=== PATIENT | female | born 1985 | race Caucasian/White ===

== ENCOUNTER 2025-05-19 13:06 | Emergency (ER) | payer OTHER, SELFPAY ==
[2025-05-19 13:16] VITALS: BP 94/53; PULSE 91; RESP 18; TEMP 36.9; O2SAT 99; BMI 23.0
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
[2025-05-19 13:42] VITALS: BP 126/49; PULSE 77; RESP 18; O2SAT 98
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
[2025-05-19 13:48] VITALS: BP 106/64; PULSE 79; RESP 16; O2SAT 99
[2025-05-19 13:49] LABS: Cannabinoid Screen Urine Not Detected (Not Detect)
--- OUTSIDE RECORDS SUMMARY | 2025-05-19 13:57 | XMS_ITS | Clinical Summary ---
Author Organization [facility] Address [facility] [place] [address] Care Team Providers Care Ditch Cleaner Name Role Phone ViolaZuly ulloa TIFFANI Primary Care Provider [phone] Allergies Active Allergy Reactions Criticality Noted Date Comments Duloxetine 03/16/2017 out of body experience Ketorolac Tromethamine 02/04/2017 Patient states that she does not remember the reaction. Tramadol 02/04/2017 Patient states that she does not remember the reaction. Hydrocodone-Acetaminophen 02/04/2017 Patient states that she does not remember the reaction Medications ibuprofen (ADVIL;MOTRIN) 200 mg Tablet Take 3 tablets by mouth every 8 hours as needed for Pain. 30 tablet 5 03/16/2017 Active albuterol (PROVENTIL HFA;VENTOLIN HFA;PROAIR) 90 mcg/actuation HFA Aerosol Inhaler Inhale 2 puffs into the lungs every 4 hours as needed for Wheezing. Use with spacer 1 Inhaler 03/16/2017 Active gabapentin (NEURONTIN) 300 mg Capsule Take 1 capsule by mouth 3 times daily as needed. 30 capsule 11 04/08/2017 Active indomethacin (INDOCIN) 25 mg Capsule Take 1 capsule by mouth 3 times daily as needed. 30 capsule 11 04/08/2017 Active Active Problems Problem Noted Date Diagnosed Date (normal spontaneous vaginal delivery) 03/16 Overview (03/16/2017): Had one daughter delivered normally. Asthma 03/16/2017 Overview (03/16/2017): Exercise induced, worse in childhood. He uses inhalers now as needed Fibromyalgia 03/16/2017 Overview (03/16/2017): Pain in various parts of the body. Was on Lyrica and duloxetine. Got better with exercise Carpal tunnel syndrome on right 03/16/2017 Overview (03/16/2017): Had surgery on the right H/O tubal ligation 03/16/2017 Overview (03/16/2017): Says she does not want more children. Uterus and ovaries retained Radiculopathy of cervical region 03/16/2017 Overview (03/16/2017): Details unclear. Says she was diagnosed with cervical spinal stenosis. Radiculopathy of lumbar region 03/16/2017 Overview (03/16/2017): L5-S1 disc herniation on MRI. Social History Tobacco Use Types Packs/Day Years Used Date Smoking Tobacco: Former Cigarettes Q uit: 02/04/2009 Smokeless Tobacco: Never Alcohol Use Standard Drinks/Week Comments Yes 0 (1 standard drink = 0.6 oz pur e alcohol) occasional Comments Unknown Sex and Gender Information Value Date Recorded Sex Assigned at Not on file Legal Sex Female 6:26 AM EST Gender Identity Not on file Sexual Orientation Not on file Last Filed Vital Signs Vital Sign Reading Time Taken Comments Blood Pressure 94/41 04/08/2017 7:53 AM EDT Pulse 64 04/08/2017 7:53 AM EDT Temperature - - Respiratory Rate - - Oxygen Saturation - - Inhaled Oxygen Concentration - - Weight 71.7 kg (158 lb) 04/08/2017 7:53 AM EDT Height 167.6 cm (5' 6 ) 04/08/2017 7:53 AM EDT r eported Body Mass Index 25.5 04/08/2017 7:53 AM EDT Plan of Treatment Health Maintenance Due Date Last Done Comments HIV screen 2004 Hepatitis C Screening 2004 Hepatitis B vaccine (0-59 yrs) and Risk (1) 2005 Tetanus/Diphtheria/Pertussis Vaccines (1 - Tdap) 08/21 HPV test 2016 PAP Smear 2016 Covid-19 Vaccine ( - season) 2024 Influenza (Flu) vaccine (1 o f 1 - Influenza standard series) 05/28/2025 Care Teams Ditch Cleaner Relationship Specialty Start Date End Date Zuly Rod APRN PCP - General 11/23/12
--- OUTSIDE RECORDS SUMMARY | 2025-05-19 13:57 | XMS_ITS | Clinical Summary ---
Author Organization [facility] Address [address] [place] [address] Care Team Providers Care Microsoft Access Developer Name Role Phone Zuly Rod Primary Care Provider [phone] Social History Tobacco Use Types Packs/Day Years Used Date Smoking Tobacco: Never Assessed Interpersonal Safety Answer Date Record ed Physically Hurt Never 04/28/2020 Verbally Threaten Not on file 04/28/2020 Comments Unknown Sex and Gender Information Value Date Recorded Sex Assigned at Not on file Legal Sex Female 18:39 EST Gender Identity Not on file Sexual Orientation Not on file Plan of Treatment Health Maintenance Due Date Last Done Comments Hepatitis C Screen 1986 Hepatitis B Vaccine (1 of 3 - 19+ 3-dose series) 08/21 COVID-19 Vaccine ( season) 2024 Care Teams Microsoft Access Developer Relationship Specialty Start Date End Date Zuly Rod ARNP [address] [place] [address] PCP - General 08/07/11
--- OUTSIDE RECORDS SUMMARY | 2025-05-19 13:57 | XMS_ITS | Patient Health Record ---
Author Organization [facility] [address] Location Address [address] [place] [id number] Care Team Providers Care Insurance Customer Service Specialist Name Role Phone Salbador Page Primary Care Provider Aaron Gordon NP, Vika Unavailable [phone] Allergies Allergen (clinical drug ingredient) Drug/Non Drug Allergy documented on EMR Reaction Allergy Type Onset Date Status ketorolac toradol (uncoded) Unknown Allergy Ac tive Streptococcus pneumoniae type 1 capsular polysaccharide antigen / Streptococcus pneumoniae type 10A capsular polysaccharide antigen / Streptococcus pneumoniae type 11A capsular polysaccharide antigen / Streptococcus pneumoniae type 12F capsular polysaccharide antigen / Streptococcus pneumoniae type 14 capsular polysaccharide antigen / Streptococcus pneumoniae type 15B capsular polysaccharide antigen / Streptococcus pneumoniae type 17F capsular polysaccharide antigen / Streptococcus pneumoniae type 18C capsular polysaccharide antigen / Streptococcus pneumoniae type 19A capsular polysaccharide antigen / Streptococcus pneumoniae type 19F capsular polysaccharide antigen / Streptococcus pneumoniae type 2 capsular polysaccharide antigen / Streptococcus pneumoniae type 20 capsular polysaccharide antigen / Streptococcus pneumoniae type 22F capsular polysaccharide antigen / Streptococcus pneumoniae type 23F capsular polysaccharide antigen / Streptococcus pneumoniae type 3 capsular polysaccharide antigen / Streptococcus pneumoniae type 33F capsular polysaccharide antigen / Streptococcus pneumoniae type 4 capsular polysaccharide antigen / Streptococcus pneumoniae type 5 capsular polysaccharide antigen / Streptococcus pneumoniae type 6B capsular polysaccharide antigen / Streptococcus pneumoniae type 7F capsular polysaccharide antigen / Streptococcus pneumoniae type 8 capsular polysaccharide antigen / Streptococcus pneumoniae type 9N capsular polysaccharide antigen / Streptococcus pneumoniae type 9V capsular polysaccharide antigen Pneumovax 23 Unknown Drug Allergy Activ e Vicodin Unknown Drug Allergy Active azithromycin Azithromycin Unknown Drug Allergy A ctive bupropion Bupropion Unknown Drug Allergy Active duloxetine Duloxetine Unknown Drug Allergy Activ e fluoxetine Fluoxetine Unknown Drug Allergy Activ e tramadol Tramadol Unknown Drug Allergy Active Reason For Referral No Information Medications Medication SIG (Take, Route, Frequency, Duration) Notes Start Date End Date Status Cyclobenzaprine HCl 5 MG TAKE 1 TABLET O RALLY AT BEDTIME NEEDED FOR MUSCLE SPASM Oral; Duration: 30 Days Not-Taking carBAMazepine Hayden-Prosper carreon Social History Sex Assigned At : Social History Observation Description Sex Assigned At Female Section Notes: working as a concrete form setter and finisher/waitressing no smoking or drugs social ETOH one daughter Problems Problem Type SNOMED Code ICD Code Onset Dates Problem Status W/U Status Risk Notes Problem Displacement of lumbar intervertebral disc without myelopathy (86165677) Other intervertebral disc displacement, lumbar region (M51.26) Active confirmed Problem Low back pain, unspecified (M54.50) Active confirmed Vital Signs Heart Rate 67 /min 11/27/2024 Respiratory Rate 16 /min 11/27/2024 Blood pressure diastolic 72 mm Hg 11/27/2024 Blood pressure systolic 120 mm Hg 11/27/2024 Encounters Encounter Location Date Provider Diagnosis [facility] Location [address] [place] [id number] 11/27/2024 Vika Gordon NP Low back pain, unspecified M54.50 and Other intervertebral disc displacement, lumbar region M51.26 Assessments Encounter Date Diagnosis (ICD Code) Assessment Notes Treatment Notes Treatment Clinical Notes Section Notes 11/27/2024 Other intervertebral disc displacement, lumbar region (ICD-10 - M51.26) 11/27/2024 Low back pain, unspecified (ICD-10 - M54.50) Here today for low back pain and LLE numbness/tingling/ weakness. She has had MRI L-Spine and EMG done on the leg already without significant findings aside from L5-S1 mild disc bulge with mild bilateral facet hypertrophy. results reviewed with her. She has been recommended to try PT specifically for SI joint dysfunction which she will start after she completes PT for her shoulder. She has already tried conservative treatment outlined above. Not interested in medications at this time and supportive care discussed. She may consider a second opinion with Ortho or have updated testing over time. General back health habits were discussed with the patient at length. They included shoe/sneaker wear, proper lifting and moving exercises. They also included proper strengthening exercise including para-spinal and abdominal muscle conditioning. We also discussed benefits of weight loss on back pain. All questions were answered. 11/27/2024 Other The natural history of the diseases was fully discussed with the patient. We also discussed side effects of medications including effect on driving and operating heavy machinery. We also discussed the impact of environmental and stress factor in neurological disease and literature given. All questions were answered. Jud Ley generated this medical record electronically to insure patient-safety and prompt feedback to the referring doctor. Kindly excuse any grammatical or typographical errors. Plan Of Treatment No Information Insurance Providers Payer Name Payer Address Payer Phone Subscriber Number Group Number Insured Name Patient Relationship to Insured Coverage Start Date Coverage End Date [facility] [address] [address] [place] [phone] [id number] Myriam Leija Self - patient is the insured Medical (General) History Medical History History ICD Code Trigeminal neuralgia hx of shingles Herniated L3 Surgical History Surgery Date(Month/Year) tubal ligation right median nerve release
[2025-05-19 14:30] VITALS: BP 106/64; PULSE 79; RESP 16; TEMP -17.7; TEMP 0; O2SAT 99
== END 2025-05-19 14:30 | disposition home or self-care (01) ==
PROVIDERS: Emergency Provider Emergency Medicine
DX: R11.10 Vomiting, unspecified (principal); R53.1 Weakness; R19.7 Diarrhea, unspecified; Z51.81 Encounter for therapeutic drug level monitoring; Z79.899 Other long term (current) drug therapy
CPT/HCPCS: 80307; 99284

== ENCOUNTER 2025-08-31 10:31 | Emergency (ER) | payer MEDICAID, SELFPAY ==
--- NOTE | ~2025-08-31 | XR_ITS ---
EXAMINATION: XR LUMBOSACRAL SPINE CLINICAL INFORMATION: low back pain COMPARISON: None available. TECHNIQUE: Three views of the lumbosacral spine. FINDINGS: There are 5 nonrib-bearing lumbar segments. Vertebral body height and alignment is preserved. Disc spaces are preserved. XR/XR lumbar spine 2-3V IMPRESSION: Unremarkable examination. Electronically signed by: Brady Coppola MD 08/31/2025 01:19 PM EST
[2025-08-31 10:36] VITALS: BP 111/56; PULSE 68; RESP 18; TEMP 36.1; O2SAT 97; BMI 25.8
--- NOTE | 2025-08-31 10:42 | ED_ITS ---
HPI - General Adult General Chief complaint: Back Pain/Injury Stated complaint: back pain Time Seen by Provider: 08/31/25 16:04 Source: patient Mode of arrival: ambulatory Limitations: no limitations History of Present Illness ED Provider: Dr. Cuevas HPI narrative: This is a 40-year-old female presented hospital today for low back pain. The patient stated that this had happened when she was shoveling snow. This has been radiating down her left leg. The pain is excruciating to her. It is worse with movement. No numbness and tingling in the groin area. No bowel incontinence no urinary retention. She does have history of spinal fracture in the past. Related Data Previous Rx's ?Medication ?Instructions ?Recorded lidocaine 5 % topical patch 1 patch topical DAILY #15 ea 08/31/25 oxycodone 5 mg tablet 5 mg PO Q6H PRN pain 4 days #14 08/31/25 tabs prednisone 20 mg tablet 20 mg PO DAILY 7 days #7 tab s 08/31/25 Allergies Allergy/AdvReac Type Severity Reaction Status Date / Time acetaminophen (From Vicodin) Allergy Vomiting Verified 08/31/25 10:38 hydrocodone (From Vicodin) Allergy Vomiting Verified 08/31/25 10:38 influenza virus vaccine tvs Allergy Unknown Verified 08/31/25 10:38 (65 yr and up) (From Fluad (65yr+)(PF)) ketorolac (From Toradol) Allergy Unknown Verified 08/31/25 10:38 tramadol Allergy Unknown Verified 08/31/25 10:38 vaccine adjuvant emulsion Allergy Unknown Verified 08/31/25 10:38 [id number] (From Fluad (65yr+)(PF)) Review of Systems Review of Systems: Pertinent review of systems as mentioned in HPI. All other system otherwise negative. [facility] Past Medical History [facility] Narrative: Medical history as mentioned in HPI Social History Social History Alcohol intake: current Alcohol intake frequency: a few times a month Alcohol type: hard liquor Advance Directives: No Advance Directives Information Provided: No Do you have a plan to hurt others: No Plan Patient : No Physical Exam ED Exam Exam: General: Pleasant, no distress, interacting appropriately Head: Normacephalic, atraumatic ENT: oral mucosa moist, neck supple, no tracheal deviation Extremities: Lumbar tenderness on palpation, positive straight leg test on the left side Neurological: Awake and alert, no facial droop noted Skin: Warm and dry Psychiatric: Appropriate mood and thoughts Vital Signs: Vital Signs - 24 hr 08/31/25 10:36 Temperature 97 F Pulse Rate 68 Respiratory Rate 18 Blood Pressure 111/56 L Pulse Oximetry 97 Oxygen Delivery Method Room Air BMI result Body Mass Index 25.8 Course Course Course Narrative: Rapid medical examination performed in triage by Khloe Zamora PA-C: Patient is a 40 year old assigned female at [facility] with [facility] pain. Patient states that she had a previous lumbar spine fracture 20 years ago. Patient states that she was just shoveling snow when she felt her back go out and is now having lower extremity numbness / tingling. Detailed physical exam and review of systems are deferred to the assistant therapy aide. Patient placed back in the waiting room pending room availability. Medications Administered Discontinued Medications Generic Name Dose Route Start Last Admin Trade Name Lonnie PRN Reason Stop Dose Admin Diazepam 5 mg 08/31/25 17:23 08/31/25 17:42 Diazepam 5 Mg Tablet PO 08/31/25 17:24 5 mg ONCE ONE Administration Lidocaine 1 patch 08/31/25 16:13 08/31/25 16:24 Lidocaine 4 % Patch Adh..Patch TRANSDERMA 08/31/25 16:14 1 patch ONCE ONE Administration Protocol Ondansetron HCl 4 mg 08/31/25 16:14 08/31/25 16:24 Ondansetron Odt 4 Mg Tab.Rapdis TRANSLINGU 08/31/25 16:15 4 mg ONCE ONE Administration Oxycodone HCl 5 mg 08/31/25 16:13 08/31/25 16:24 Oxycodone Hcl Immed Release 5 Mg Tablet PO 08/31/25 16:14 5 mg ONCE ONE Administration Prednisone 20 mg 08/31/25 16:14 08/31/25 16:24 Prednisone 20 Mg Tablet PO 08/31/25 16:15 20 mg ONCE ONE Administration Medical Decision Making Medical Decision Making MDM Narrative: 40-year-old female presented hospital today for evaluation of low back pain that radiates to her left lower extremity. Plan to give patient a dose of oxycodone here, lidocaine patch will be provided, we will also give patient a dose of prednisone. Zofran will be given for anticipatory nausea for opioid medication Lumbar x-ray is negative for any signs of fracture. Patient did have some improvement after medication. We will plan to discharge patient home with a course of oxycodone, prednisone, lidocaine patch to take. Instruct her to take NSAIDs scheduled around the clock. I suspect this is lumbar radiculopathy return precautions to return to the ER if there is any signs of red flag symptoms for her back pain. Patient agrees and understands this plan all questions were addressed. Differential Diagnosis Differential Diagnoses: The differential diagnosis associated with the presentation includes Lumbar fracture, lumbar radiculopathy, cauda equina, muscular strain, piriformis syndrome Independent Interpretation I performed an independent interpretation of an: Plain X-Ray Radiology Impression Discussion of test interpretation with radiology: I have reviewed the radiologist's reading. Discharge Plan Discharge Clinical Impression: Acute left lumbar radiculopathy Patient Disposition: Home, Self-Care Instructions: Lumbar Radiculopathy (ED) Additional Instructions: Take tylenol 1000mg every 8 hours and ibuprofen 400mg every 6 hr as needed for pain. Take oxycodone for any severe breakthrough pain as needed. Do NOT drive on oxycodone Prescriptions: New oxycodone 5 mg tablet 5 mg PO Q6H PRN (Reason: pain) 4 Days Qty: 14 0RF Rx Instructions: Partial Fill upon patient request. prednisone 20 mg tablet 20 mg PO DAILY 7 Days Qty: 7 0RF lidocaine 5 % adhesive patch,medicated 1 patch topical DAILY Qty: 15 0RF Rx Instructions: leave on most painful area for up to 12 hrs Referrals: [facility] [place] [Provider Group, Internal Medicine] Print Language: Citizen Of [place]
[2025-08-31] MEDS: oxyCODONE HCl Immed Release 5 MG TABLET PO (16:24)
[2025-08-31] MEDS: Lidocaine 4 % Patch ADH..PATCH 1 PATCH TRANSDERMA (16:24)
[2025-08-31 19:19] VITALS: BP 102/49; PULSE 66; RESP 18; TEMP 36.7; O2SAT 97
[2025-08-31 19:20] VITALS: BP 102/49; PULSE 66; RESP 18; TEMP 36.7; O2SAT 97
--- OUTSIDE RECORDS SUMMARY | 2025-08-31 19:47 | XMS_ITS | Encounter Summary ---
Author Organization [employer] [facility] Address [address] [place] [id number] Care Team Providers Care Printing Agent Name Role Phone Unavailable Primary Care Provider Unavailabl e Reason for Visit * Reason Onset Date Comments CHW - New Patient Assistance 08/31/2025 Encounter Details Date Type Department Care Team (Late st Contact Info) Description 08/31/2025 Telephone [facility] MEDICINE [address] [place] [address] [phone] Alonso Whyte MD [address] [place], [place] [phone] CHW - New Patient Assistance Social History Tobacco Use Types Packs/Day Years Used Date Smoking Tobacco: Never Assessed Comments Unknown Sex and Gender Information Value Date Recorded Sex Assigned at Not on file Legal Sex Female 8:52 AM EST Gender Identity Not on file Sexual Orientation Not on file documented as of this encounter Miscellaneous Notes * Telephone Encounter - Lynne Nickerson - 08/31/2025 8:53 AM EST TC from caller requesting NEW PATIENT visit . DX : Medical Concern: Back pain [facility] Location : [facility] Demographic information updated documented in this encounter Plan of Treatment Upcoming Encounters Date Type Department Care Team (Late st Contact Info) Description 10/03/2025 2:30 PM EST Office Visit [facility] MEDICINE [address] [place] [address] [phone] Franklin Paez NP [address] [place], [place] [phone] documented as of this encounter Visit Diagnoses Not on filedocumented in this encounter
--- OUTSIDE RECORDS SUMMARY | 2025-08-31 19:47 | XMS_ITS | Clinical Summary ---
Author Organization [facility] Address [address] [place] [address] Care Team Providers Care Sales Order Clerk Name Role Phone Zuly Rod Primary Care Provider [phone] Social History Tobacco Use Types Packs/Day Years [...] - 19+ 3-dose series) 08/21 COVID-19 Vaccine (2024- season) 2025 Care Teams Sales Order Clerk Relationship Specialty Start Date End Date Zuly Rod ARNP [address] [place] [address] PCP - General 08/07/11
--- OUTSIDE RECORDS SUMMARY | 2025-08-31 19:47 | XMS_ITS | Clinical Summary ---
Author Organization [employer] Address [address] [place] [address], [place] [address] Care Team Providers Care Correction Officer Reformatory Name Role Phone Unavailable Primary Care Provider Unavailabl e Encounters Date Type Department Care Team Description 08/31/2025 Telephone [facility] MEDICINE [address] [place] [id number] Alonso Whyte MD CHW - New Patient Assistance from Last 3 Months Social History Tobacco Use Types Packs/Day Years Used Date Smoking Tobacco: Never Assessed Comments Unknown Sex and Gender Information Value Date Recorded Sex Assigned at Not on file Legal Sex Female 8:52 AM EST Gender Identity Not on file Sexual Orientation Not on file Plan of Treatment Upcoming Encounters Date Type Department Care Team (Late st Contact Info) Description 10/03/2025 2:30 PM EST Office Visit [facility] MEDICINE [address] [place] [address] [phone] Franklin Paez NP [address] [place], [place] [phone] Health Maintenance Due Date Last Done Comments Depression Screening 1986 HIV Screening 1986 SDOH Screening 1986 Disability Screening 1986 Alcohol/Substance Use Screening 1998 Tobacco Screening 1998 Family Planning (PISQ) 2001 HPV Vaccines (1 - 3-dose series) 2001 Hepatitis C Screening 2004 DTaP/Tdap/Td Vaccines (1 - Tdap) 2005 Hepatitis B Vaccines (1 of 3 - 19+ 3-dose series) 2005 Pap Smear 2007 Cervical Cancer Screening 2016 HPV/Cotest 2016 COVID-19 Vaccine (2024-2 6 season) 2025 Influenza Vaccine (#1) 2025 Zoster Vaccines (1 of 2) 2036 RSV Patients and Pa tients Aged 60 years or older (1 - 1-dose 75+ series) 2061 HIB Vaccines Aged Out No longer eligi ble based on patient's age to complete this topic Hepatitis A Vaccines Aged Out No long er eligible based on patient's age to complete this topic IPV Vaccines Aged Out No longer eligi ble based on patient's age to complete this topic Meningococcal B Vaccine Aged Out No l onger eligible based on patient's age to complete this topic Meningococcal Vaccine Aged Out No gen isauro eligible based on patient's age to complete this topic Pneumococcal Vaccine: Pediat rics (0 to 5 Years) and At-Risk Patients (6 to 49) Years Aged Out No longer eligible b ased on patient's age to complete this topic RSV under 20 months Aged Out No longe r eligible based on patient's age to complete this topic Rotavirus Vaccines Aged Out No longer eligible based on patient's age to complete this topic Insurance N PARTIAL
--- OUTSIDE RECORDS SUMMARY | 2025-08-31 19:47 | XMS_ITS | Clinical Summary ---
Author Organization [facility] Address [address] [place] [address] Care Team Providers Care Speech Clinician Name Role Phone ViolaZuly ulloa TIFFANI Primary Care Provider [phone] Allergies Active Allergy Reactions Criticality Noted Date [...] PAP Smear 2016 Covid-19 Vaccine ( - 2024- season) 2025 Influenza (Flu) vaccine (1 o f 1 - Influenza standard series) 05/28/2025 Care Teams Speech Clinician Relationship Specialty Start Date End Date Zuly Rod APRN PCP - General 11/23/12
== END 2025-08-31 19:20 | disposition home or self-care (01) ==
PROVIDERS: Emergency Provider Student in an Organized Health Care Education/Training Program
DX: M54.16 Radiculopathy, lumbar region (principal); M79.605 Pain in left leg
CPT/HCPCS: 72100; 99284

== ENCOUNTER → 2025-08-31 12:59 | Outpatient (BNV) | payer OTHER, SELFPAY | PROVIDERS: Visit Provider Radiology Diagnostic Radiology | DX: M54.50 Low back pain, unspecified (principal) | CPT/HCPCS: 72100 ==